=== PATIENT | female | born 2005 | race Caucasian/White ===

== ENCOUNTER 2024-02-05 14:06 | Outpatient (CLI) | payer OTHER, SELFPAY | END 2024-02-05 14:07 | disposition home or self-care (01) | LOC: NFLDREF 02-06 11:29 | PROVIDERS: PCP Family Medicine; Referring Provider Family Medicine; Visit Provider Nurse Practitioner | DX: R39.15 Urgency of urination (principal); N30.00 Acute cystitis without hematuria | CPT/HCPCS: 87086 ==

== ENCOUNTER 2024-12-01 13:56 | Outpatient (CLI) | payer OTHER, SELFPAY | END 2024-12-01 13:57 | disposition home or self-care (01) | LOC: NFLDREF 12-05 15:17 | PROVIDERS: PCP Family Medicine; Referring Provider Family Medicine; Visit Provider Physician Assistant | DX: N39.0 Urinary tract infection, site not specified (principal); B96.20 Unspecified Escherichia coli [E. coli] as the cause of diseases classified elsewhere | CPT/HCPCS: 87086 ==

== ENCOUNTER 2024-12-24 08:02 | Outpatient (CLI) | payer OTHER, SELFPAY ==
--- NOTE | 2024-12-24 08:15 | CRLHL7_ITS ---
For Patients: As a result of the Century Cures Act, medical imaging exams and procedure reports are released immediately into your electronic medical record. You may view this report before your referring provider. If you have questions, please contact your health care provider. ULTRASOUND-GUIDED BREAST BIOPSY CLINICAL HISTORY: Solid mass. COMPARISON STUDIES: 12/16/2024. TECHNIQUE: Real-time ultrasound with image documentation was used for targeting the breast lesion. Core biopsy specimens were obtained using an automated gun with a 16 gauge biopsy needle. Post-biopsy CC and ML digital mammograms were obtained to document position of the biopsy marker. CONSENT and TIME OUT: The procedure, risks, and alternatives were explained to the patient and a consent was signed. [place] Protocol was followed including pre-procedure verification that relevant information/documentation was available, reviewed and properly matched to the patient; consent accurate and complete; and equipment and supplies available. Time Out was conducted just prior to starting procedure to verify the four required elements: patient identity, correct side/site marked (if applicable), procedure, relevant images/results properly labeled and displayed (if applicable). PROCEDURE: The patient was positioned supine on the ultrasound table. The breast was prepped with ChloraPrep. 6 cc of 1 percent lidocaine used for local anesthesia. Core samples were obtained. The specimens were placed in 10% formalin and sent to the pathology department. Pressure was held on the biopsy site until all bleeding subsided. The skin incision was closed with Steri-Strips. An ice pack was positioned over the biopsy site. Post-biopsy instructions were reviewed with the patient, and a written copy was given to her. LATERALITY: RIGHT breast. LESION: Solid hypoechoic mass measuring 4.3 cm at 10 o`clock 1 cm from the nipple. SUSPICION FOR MALIGNANCY: Low. NUMBER OF SAMPLES: 5. IMPRESSION: Ultrasound-guided breast biopsy. When the pathology report is available, an addendum to this report will be made. ACR not applicable Dictated by Evan Morales MD @ 12/24/2024 11:02:23 AM/CRL:[email or web address] ROSARIO/Dictated by: Evan Morales MD @ 12/24/2024 11:02:00 AM (Electronically Signed)
== END 2024-12-24 08:03 | disposition home or self-care (01) ==
LOC: US 08:06
PROVIDERS: PCP Family Medicine; Visit Provider Family Medicine
DX: N63.10 Unspecified lump in the right breast, unspecified quadrant (principal)
CPT/HCPCS: 19083; 88305; A4648; A4649

== ENCOUNTER 2025-02-13 06:15 | Day surgery (SDC) | payer OTHER, SELFPAY ==
[2025-02-13] MEDS: LACTATED RINGERS 1000 ML 1,000 ML 100 ML IV (06:25)
[2025-02-13 06:45] VITALS: BP 115/73; PULSE 94; RESP 16; TEMP 37.2; O2SAT 100
[2025-02-13 06:46] VITALS: BMI 19.3
[2025-02-13 06:47] LABS: Ur HCG Qualitative* Negative (Negative)
[2025-02-13] MEDS: SODIUM CHLORIDE 0.9 % (FLUSH) 10 ML SYRINGE IVF (06:58)
--- NOTE | 2025-02-13 07:28 | W.PM.H&PU ---
History & Physical Update History & Physical Update H&P Reviewed and patient assessed: No changes noted
[2025-02-13] MEDS: LIDOCAINE 1% MDV 20 ML INJECTION (07:53)
[2025-02-13] MEDS: BUPIVACAINE 0.25% 30 ML INJECTION (07:53)
--- NOTE | 2025-02-13 08:05 | CRLHL7_ITS ---
For Patients: As a result of the Cures Act, medical imaging exams and procedure reports are released immediately into your electronic medical record. You may view this report before your referring provider. If you have questions, please contact your health care provider. RIGHT BREAST SPECIMEN RADIOGRAPH CLINICAL HISTORY: Fibroadenoma resection. COMPARISON: Ultrasound 12/24/2024. FINDINGS: Two views of the RIGHT breast specimen submitted. The specimen contains the fibroadenoma. IMPRESSION: Fibroadenoma is present within specimen. ACR not applicable Dictated by Evan Morales MD @ 02/13/2025 9:11:40 AM jj/Dictated by: Evan Morales MD @ 02/13/2025 9:11:00 AM (Electronically Signed)
[2025-02-13 08:20] VITALS: BP 106/72; PULSE 74; RESP 16; TEMP 36.8; O2SAT 100
--- NOTE | 2025-02-13 08:23 | PM.GSPRC ---
Operative Note Date of procedure: 02/13/25 Pre-op diagnosis: Right breast mass Post-op diagnosis: Same Type of Procedure: Right breast lumpectomy Indications: Patient is a 19-year-old female presented to clinic with a right breast mass. This was biopsied and consistent with fibroadenoma versus phyllodes tumor. Recommendations were for excision. Risks and benefits of operative intervention were discussed at length with the patient. Risks included but was not limited to: Bleeding, infection, risk of damage to surrounding structures, possible need for additional procedures, cosmetic changes to the breast or nipple and postoperative complications such as pneumonia, pulmonary emboli or PA. All questions and concerns were addressed with the patient agreeing to proceed. Procedure Description: After discussing the risks and benefits of the procedure, the patient signed informed consent.? The operative site was marked and the patient was brought to the operating room and placed on the operating table in supine position.? Care was taken to pad the patient's pressure points.?? The patient was then given sedation by anesthesia.?? The operative site was then prepped and draped in the usual sterile fashion.? A time-out was then performed. Local anesthesia was infiltrated into a curvilinear incision in the 10 o'clock position around the nipple. The mass was easily palpable and encapsulated. Using blunt dissection and cautery I circumferentially dissected free the mass. The specimen was inked for orientation. It was sent to Radiology, no evidence of clip but on review of the biopsy reports no clip was placed. The specimen was then sent for permanent evaluation. Hemostasis was assured with cautery. The wound was irrigated and all irrigant suctioned from the wound. Additional local anesthesia was infiltrated. The wounds were then closed in layers using absorbable suture, and Dermbond was placed over the wounds. The patient was awakened without incident and taken to PACU in stable condition. Sponge, needle and instrument counts were correct x3 at the termination of the case. Findings: Right breast mass Anesthesia: MAC and regional Surgeon: Niharika Pope MD Additional Specimen Information: Right breast mass Condition: stable Disposition: same day
--- NOTE | 2025-02-13 08:26 | P.ANES_ITS ---
Anesthesia Charges Start Date/Time Anesthesia Start Date: 02/13/25 Anesthesia Start Time: 07:28 Stop Date/Time Anesthesia Stop Date: 02/13/25 Anesthesia Stop Time: : Coding CPT Codes CPT Codes: ANESTH SKIN EXT/PER/ATRUNK - 96807 ([id number]) P1 - NORMAL HEALTHY PATIENT, QK - MARINE DIESEL TECHNICIAN 2-4 CNCRNT ANES PROC, QX - THERAPY SITE COORDINATOR SVSneha W/ MED DIRECTION
--- NOTE | 2025-02-13 08:26 | W.ANESCHARGE ---
Anesthesia Charges Start Date/Time Anesthesia Start Date: 02/13/25 Anesthesia Start Time: 07:28 Stop Date/Time Anesthesia Stop Date: 02/13/25 Anesthesia Stop Time: : Coding CPT Codes CPT Codes: ANESTH SKIN EXT/PER/ATRUNK - 13666 ([id number]) P1 - NORMAL HEALTHY PATIENT, QK - DIRECTOR OF HEALTH EDUCATION 2-4 CNCRNT ANES PROC, QX - EGG AND SPICE MIXER SVSneha W/ MED DIRECTION
[2025-02-13 08:30] VITALS: BP 101/83; PULSE 72; RESP 16; O2SAT 100
--- NOTE | 2025-02-13 08:42 | P.ANES_ITS ---
Anesthesia Charges Start Date/Time Anesthesia Start Date: 02/13/25 Anesthesia Start Time: 07:28 Stop Date/Time Anesthesia Stop Date: 02/13/25 Anesthesia Stop Time: : Coding CPT Codes CPT Codes: ANESTH SKIN EXT/PER/ATRUNK - 02069 ([id number]) P1 - NORMAL HEALTHY PATIENT, QK - DEVELOPMENTAL EDUCATION INSTRUCTOR 2-4 CNCRNT ANES PROC, QX - LOCOMOTIVE ENGINEER DIESEL SVSneha W/ MED DIRECTION
--- NOTE | 2025-02-13 08:42 | W.ANESCHARGE ---
Anesthesia Charges Start Date/Time Anesthesia Start Date: 02/13/25 Anesthesia Start Time: 07:28 Stop Date/Time Anesthesia Stop Date: 02/13/25 Anesthesia Stop Time: : Coding CPT Codes CPT Codes: ANESTH SKIN EXT/PER/ATRUNK - 01470 ([id number]) P1 - NORMAL HEALTHY PATIENT, QK - FOOD AND BEVERAGE ASSOCIATE 2-4 CNCRNT ANES PROC, QX - DOPSTER SVSneha W/ MED DIRECTION
[2025-02-13 08:45] VITALS: BP 110/42; PULSE 67; RESP 16; O2SAT 100
[2025-02-13 09:00] VITALS: BP 112/55; PULSE 70; RESP 16; O2SAT 100
== END 2025-02-13 09:16 | disposition home or self-care (01) ==
PROVIDERS: PCP Family Medicine; Visit Provider Surgery
PROC: (CPT 19120; principal; 2025-02-13 07:30)
DX: D24.1 Benign neoplasm of right breast (principal)
CPT/HCPCS: 19120; 00400; 81025; 88307; J2003; J0665; J0690; J1100; J1885; J2405; J2704; J3010; J3490; J7120